=== PATIENT | female | born 1970 | race Caucasian/White ===

== ENCOUNTER 2023-08-08 07:15 | Observation (INO) | payer BC ==
[2023-08-06 16:50] VITALS: BMI 39.9
[2023-08-08] MEDS ORDERED: Vancomycin (BATCH) 1.5 GRAM/300 ML BAG ONE (07:33)
[2023-08-08] MEDS ORDERED: fentaNYL 50 mcg/mL 1 mL Vial ONE ×5 (08:06→11:19)
[2023-08-08] MEDS ORDERED: Lidocaine 1% (PF) 30 ML VIAL ONE (08:06)
[2023-08-08] MEDS ORDERED: Bupivacaine PF 0.5% 30 ML VIAL ONE (08:06)
[2023-08-08] MEDS ORDERED: Midazolam HCl 2 mg/2 ml Vial ONE ×2 (08:06→08:40)
[2023-08-08] MEDS ORDERED: Sodium Chloride 0.9% 100 ML ONE (08:47)
[2023-08-08] MEDS ORDERED: CEFAZOLIN 2 GM VIAL ONE (08:47)
[2023-08-08] MEDS ORDERED: Bupivacaine HCl 0.5%/Epinephrine 1:200,000/PF 30 ml Vial ONE (09:00)
[2023-08-08] MEDS ORDERED: Ketorolac Tromethamine 30 MG/ML VIAL ONE (09:18)
[2023-08-08] MEDS ORDERED: PROPOFOL 200 MG/20 ML VIAL ONE (09:18)
[2023-08-08] MEDS ORDERED: fentaNYL 50 mcg/mL 1 mL Vial SLOW IVP PRN (09:18)
[2023-08-08] MEDS ORDERED: Dexamethasone 20 MG/5 ML VIAL ONE (09:18)
[2023-08-08] MEDS ORDERED: Lidocaine 1% PF 5 ML VIAL ONE (09:18)
[2023-08-08] MEDS ORDERED: Ondansetron PF 4 MG/2 ML Vial ONE (09:18)
[2023-08-08] MEDS ORDERED: Zolpidem Tartrate 5 MG TAB PO PRN (09:30)
[2023-08-08] MEDS ORDERED: HYDROcodone/Acetaminophen 10/325 mg Tablet PO PRN (09:30)
[2023-08-08] MEDS ORDERED: Ropivacaine 0.2% 550 ML 550 ML NERVE BLCK SCH (09:30)
[2023-08-08] MEDS ORDERED: Ondansetron PF 4 MG/2 ML Vial IVP PRN (09:30)
[2023-08-08] MEDS ORDERED: traMADol HCl 50 MG TAB PO PRN ×2 (09:30)
[2023-08-08] MEDS ORDERED: Promethazine HCl 25 MG/ML VIAL IM PRN (09:30)
[2023-08-08] MEDS ORDERED: diphenhydrAMINE 50 MG CAP PO PRN (10:23)
[2023-08-08] MEDS ORDERED: Bisacodyl 10 MG SUPP PR PRN (10:23)
[2023-08-08] MEDS ORDERED: HYDROcodone/Acetaminophen 7.5/325 mg Tablet PO PRN (10:23)
[2023-08-08] MEDS ORDERED: Acetaminophen 500 MG TAB PO PRN (10:23)
[2023-08-08] MEDS ORDERED: Milk Of Magnesia 30 ML UDCUP PO PRN (10:23)
[2023-08-08] MEDS ORDERED: cloNIDine 0.1 MG TAB PO PRN (10:27)
[2023-08-08] MEDS ORDERED: fentaNYL PF 100 MCG/2 ML SYRINGE ONE (10:50)
[2023-08-08] MEDS: Dextrose 5 %-0.45 % NaCl 1,000 ML IV SCH ×2 (13:09→20:40)
[2023-08-08] MEDS: Ketorolac Tromethamine 30 MG/ML VIAL IVP SCH ×3 (13:34→23:46)
[2023-08-08] MEDS: CEFAZOLIN 2 GM in Sodium Chloride 0.9% 100 ML IVPB SCH (16:55)
[2023-08-08] MEDS: HYDROcodone/Acetaminophen 10/325 mg Tablet PO PRN (17:04)
[2023-08-08] MEDS: Famotidine 20 MG TAB PO SCH (20:33)
[2023-08-08] MEDS: Carvedilol 6.25 MG TAB PO SCH (20:33)
[2023-08-08] MEDS: Methocarbamol 500 MG TAB PO PRN (20:33)
[2023-08-08] MEDS: Vancomycin 1.5 GRAM/300 ML BAG 1.5 GM in Premix Bag 1 BAG IVPB SCH (20:34)
[2023-08-08] MEDS ORDERED: Vancomycin 1.5 GRAM/300 ML BAG 1.5 GM in Premix Bag 1 BAG IVPB SCH (21:00)
[2023-08-09] MEDS: Methocarbamol 500 MG TAB PO PRN ×2 (02:15→14:29)
[2023-08-09] MEDS: CEFAZOLIN 2 GM in Sodium Chloride 0.9% 100 ML IVPB SCH (02:16)
[2023-08-09] MEDS: HYDROcodone/Acetaminophen 7.5/325 mg Tablet PO PRN ×2 (04:55→14:29)
[2023-08-09] MEDS: Ketorolac Tromethamine 30 MG/ML VIAL IVP SCH ×2 (06:12→12:41)
[2023-08-09] MEDS: Dextrose 5 %-0.45 % NaCl 1,000 ML IV SCH (06:17)
[2023-08-09 08:49] VITALS: BP 127/76; TEMP 98.7
[2023-08-09] MEDS ORDERED: Amlodipine 10 MG TAB PO SCH (09:00)
[2023-08-09] MEDS: Vancomycin 1.5 GRAM/300 ML BAG 1.5 GM in Premix Bag 1 BAG IVPB SCH (09:23)
[2023-08-09] MEDS: HYDROcodone/Acetaminophen 10/325 mg Tablet PO PRN (09:24)
[2023-08-09] MEDS: Famotidine 20 MG TAB PO SCH (09:24)
[2023-08-09] MEDS: Carvedilol 6.25 MG TAB PO SCH (09:24)
[2023-08-09] MEDS ORDERED: Bupivacaine PF 0.5% 30 ML VIAL ONE (10:09)
[2023-08-09] MEDS ORDERED: Bupivacaine HCl 0.5%/Epinephrine 1:200,000/PF 30 ml Vial ONE (11:20)
== END 2023-08-09 15:39 | disposition home or self-care (01) ==
LOC: SDC 07:15 → SJJU 10:23
PROVIDERS: ADMIT Orthopaedic Surgery; ATTEND Orthopaedic Surgery
PROC: 0MQP4ZZ Repair Left Knee Bursa and Ligament, Percutaneous Endoscopic Approach (ICD-10-PCS; principal; 2023-08-08)
PROC: 0SBD4ZZ Excision of Left Knee Joint, Percutaneous Endoscopic Approach (ICD-10-PCS; 2023-08-08)
DX: S83.512A Sprain of anterior cruciate ligament of left knee, initial encounter (principal); S83.282A Other tear of lateral meniscus, current injury, left knee, initial encounter; I10 Essential (primary) hypertension; F41.9 Anxiety disorder, unspecified; F17.200 Nicotine dependence, unspecified, uncomplicated; Z91.018 Allergy to other foods; Z79.899 Other long term (current) drug therapy; X58.XXXA Exposure to other specified factors, initial encounter
CPT/HCPCS: A4306; C1713; C1898; J1100; J1885; J2001; J2250; J2405; J2704; J2795; J3010; J3370; J3490; S0020